=== PATIENT | female | born 1945 | race Caucasian/White ===

== ENCOUNTER → 2016-07-23 | Outpatient (CLI) | payer OTHER, BC | LOC: RAD 15:05 | DX: Z12.31 Encounter for screening mammogram for malignant neoplasm of breast (principal) ==

== ENCOUNTER → 2017-03-05 | Outpatient (CLI) | payer OTHER, BC | LOC: NUC 10:28 | DX: M81.0 Age-related osteoporosis without current pathological fracture (principal); E28.39 Other primary ovarian failure; R31.9 Hematuria, unspecified; Z78.0 Asymptomatic menopausal state ==

== ENCOUNTER → 2020-05-01 | Outpatient (CLI) | payer OTHER, BC | LOC: BC 10:38 | PROVIDERS: ATTEND Family Medicine | DX: Z12.31 Encounter for screening mammogram for malignant neoplasm of breast (principal); N64.89 Other specified disorders of breast ==